=== PATIENT | male | born 1995 | race Caucasian/White ===

== ENCOUNTER 2019-11-04 17:24 | Emergency (ER) | payer SELFPAY ==
[~2019-11-04] VITALS: Ht 182.9 cm; Wt 122.5 kg
[2019-11-04] MEDS ORDERED: ACETAMINOPHEN 500 MG TAB PO ONE (21:30)
[2019-11-04] MEDS ORDERED: IBUPROFEN 800 MG TAB PO ONE (21:30)
[2019-11-04 22:06] VITALS: BP 124/84
== END 2019-11-04 22:11 | disposition home or self-care (01) ==
LOC: ER 17:31
DX: S13.9XXA Sprain of joints and ligaments of unspecified parts of neck, initial encounter (principal); V73.6XXA Passenger on bus injured in collision with car, pick-up truck or van in traffic accident, initial encounter; Y93.89 Activity, other specified; Y99.8 Other external cause status; Y92.410 Unspecified street and highway as the place of occurrence of the external cause
CPT/HCPCS: 72040